=== PATIENT | female | born 1990 | race Caucasian/White ===

== ENCOUNTER 2017-08-20 06:02 | Emergency (ER) | payer OTHER ==
[~2017-08-20] VITALS: Ht 154.9 cm; Wt 72.1 kg
[2017-08-20 06:12] VITALS: Ht 154.9 cm; Wt 72.1 kg
[2017-08-20 07:09] LABS: BASOPHIL % 0.3 % (0-2); PLATELET COUNT 286 x10^3mcL (130-400); RED CELL DISTRIBUTION WIDTH 12.4 % (11.5-14.5)
[2017-08-20 07:11] LABS: CALCIUM 8.6 mg/dL (8.5-10.1); CARBON DIOXIDE 28.6 mmol/L (21-32); CHLORIDE SERUM 108 mmol/L (98-107); CREATININE SERUM 0.8 mg/dL (0.6-1.0); GFR1 > 60 mL/min; GLUCOSE SERUM 95 mg/dL (74-106); POTASSIUM SERUM 4.5 mmol/L (3.5-5.1); SODIUM SERUM 144 mmol/L (136-145)
[2017-08-20 07:16] LABS: ALBUMIN 3.7 g/dL (3.4-5.0); ALKALINE PHOSPHATASE 57 U/L (46-116); ALT/SGPT 17 U/L (14-59); AMYLASE 58 U/L (25-115); AST/SGOT 11 U/L (15-37); BILIRUBIN TOTAL 0.3 mg/dL (0.20-1.00); LIPASE 199 IU/L (73-393)
[2017-08-20 13:17] VITALS: BP 115/84
== END 2017-08-20 13:17 | disposition home or self-care (01) ==
LOC: ED 06:02
PROVIDERS: Emergency Medicine
DX: N83.202 Unspecified ovarian cyst, left side (principal)
CPT/HCPCS: 83880; J1885; J2405; J3010; Q9967

== ENCOUNTER 2017-08-20 20:41 | Inpatient (IN) | payer OTHER ==
[~2017-08-20] VITALS: Ht 154.9 cm; Wt 72.2 kg
[2017-08-20 23:26] LABS: BASOPHIL % 0.3 % (0-2); PLATELET COUNT 304 x10^3mcL (130-400); RED CELL DISTRIBUTION WIDTH 12.1 % (11.5-14.5)
[2017-08-21 03:52] VITALS: BP 136/81
[2017-08-21 04:03] LABS: T3 TOTAL 0.81 ng/mL
[2017-08-21 04:16] LABS: CALCIUM 8.4 mg/dL (8.5-10.1); CARBON DIOXIDE 26.4 mmol/L (21-32); CHLORIDE SERUM 104 mmol/L (98-107); CREATININE SERUM 0.7 mg/dL (0.6-1.0); GFR1 > 60 mL/min; GLUCOSE SERUM 120 mg/dL (74-106); POTASSIUM SERUM 3.9 mmol/L (3.5-5.1); SODIUM SERUM 139 mmol/L (136-145)
[2017-08-21 04:32] LABS: CHOLESTEROL/HDL RATIO 2.4; PHOSPHOROUS 2.9 mg/dL (2.5-4.9)
[2017-08-21 04:34] LABS: FREE T4 1.09 ng/dL (0.76-1.46); FREE THYROXINE INDEX 3.1 ug/dL (1.4-4.5); T4(THYROXINE) 9.5 ug/dL (4.7-13.3)
[2017-08-21 09:26] VITALS: BP 125/73
[2017-08-21 10:07] LABS: microscopic required? NO
[2017-08-21 10:38] LABS: UA SPECIFIC GRAVITY >=1.030 (1.005-1.035); urine erythrocyte NEGATIVE (NEGATIVE)
[2017-08-21 11:04] LABS: AMPHETAMINE QUAL UR NONE DETECTED (NEG <=1000)
[2017-08-21 12:36] VITALS: BP 117/77
[2017-08-21 14:30] VITALS: BP 126/74
[2017-08-21 17:08] VITALS: BP 100/63
[2017-08-21 20:28] VITALS: BP 103/63
[2017-08-22 05:07] VITALS: BP 103/63
[2017-08-22 06:05] LABS: BASOPHIL % 0.2 % (0-2); PLATELET COUNT 232 x10^3mcL (130-400); RED CELL DISTRIBUTION WIDTH 12.7 % (11.5-14.5)
[2017-08-22 06:26] LABS: CALCIUM 8.2 mg/dL (8.5-10.1); CARBON DIOXIDE 28.9 mmol/L (21-32); CHLORIDE SERUM 107 mmol/L (98-107); CREATININE SERUM 0.6 mg/dL (0.6-1.0); GFR1 > 60 mL/min; GLUCOSE SERUM 104 mg/dL (74-106); POTASSIUM SERUM 4.3 mmol/L (3.5-5.1); SODIUM SERUM 141 mmol/L (136-145)
[2017-08-22 09:35] VITALS: BP 109/60
[2017-08-22] MEDS ORDERED: APAP/HYDROCODON1 T13 PO (09:56)
[2017-08-22] MEDS ORDERED: COL100 PO (10:01)
[2017-08-22 12:46] VITALS: BP 109/60
== END 2017-08-22 14:16 | disposition home or self-care (01) | DRG 513 ==
LOC: ED 20:41 → DU 08-21 02:46
PROVIDERS: Emergency Medicine; Family Medicine; Obstetrics & Gynecology
PROC: 0UB10ZZ Excision of Left Ovary, Open Approach (ICD-10-PCS; principal; 2017-08-21 11:30)
DX: N83.512 Torsion of left ovary and ovarian pedicle (principal); E66.9 Obesity, unspecified; N83.202 Unspecified ovarian cyst, left side; Z90.49 Acquired absence of other specified parts of digestive tract; Z68.30 Body mass index [BMI] 30.0-30.9, adult
CPT/HCPCS: 83880; 84439; 94150; J0690; J1885; J2250; J2270; J2405; J2765; J3010; J3490; J7030; Q0092; Q0162